=== PATIENT | female | born 1995 | race Two or more races ===

== ENCOUNTER 2019-11-24 06:23 | Emergency (ER) | payer OTHER ==
[~2019-11-24] VITALS: Ht 154.9 cm; Wt 58.0 kg
[2019-11-24 07:08] VITALS: BP 120/69
== END 2019-11-24 07:11 | disposition home or self-care (01) ==
LOC: ER 06:24
DX: S39.82XA Other specified injuries of lower back, initial encounter (principal); Z88.0 Allergy status to penicillin; Z88.2 Allergy status to sulfonamides; W05.1XXA Fall from non-moving nonmotorized scooter, initial encounter; Y93.89 Activity, other specified; Y92.488 Other paved roadways as the place of occurrence of the external cause; Y99.8 Other external cause status
CPT/HCPCS: 99284